=== PATIENT | female | born 1970 | race Caucasian/White ===

== ENCOUNTER 2023-12-01 07:43 | Day surgery (SDC) | payer OTHER ==
[~2023-12-01] VITALS: Ht 154.9 cm; Wt 91.2 kg
[2023-12-01] MEDS ORDERED: fentaNYL citrate 0.05 MG/ML VIAL ONE (08:10)
[2023-12-01] MEDS ORDERED: MIDAZOLAM 5 MG/5 ML VIAL ONE (08:10)
[2023-12-01] MEDS ORDERED: diphenhydrAMINE 50 MG/ML VIAL ONE (08:10)
[2023-12-01] MEDS ORDERED: LIDOCAINE 2% 100 MG/5 ML UJET TP ONE (08:10)
[2023-12-01] MEDS: MIDAZOLAM 5 MG/5 ML VIAL IV ONE (08:34)
[2023-12-01] MEDS: fentaNYL citrate 0.05 MG/ML VIAL IVP ONE (08:35)
[2023-12-01] MEDS: diphenhydrAMINE 50 MG/ML VIAL IVP ONE (08:36)
== END 2023-12-01 10:15 | disposition home or self-care (01) ==
LOC: MDS 07:43 → MMU 07:44 → MDS 10:15
PROVIDERS: ATTEND Internal Medicine Gastroenterology
DX: Z12.11 Encounter for screening for malignant neoplasm of colon (principal); K21.9 Gastro-esophageal reflux disease without esophagitis; K63.5 Polyp of colon; Z90.49 Acquired absence of other specified parts of digestive tract; Z98.51 Tubal ligation status; Z79.899 Other long term (current) drug therapy; Z98.890 Other specified postprocedural states
CPT/HCPCS: 45385; J1200; J2250; J3010